=== PATIENT | male | born 1965 | race Caucasian/White ===

== ENCOUNTER 2021-12-03 07:50 | Emergency (ER) | payer MEDICARE, MEDICAID ==
[~2021-12-03] VITALS: Ht 185.4 cm; Wt 188.6 kg
[~2021-12-03 07:50] MED LIST: ALBU18HF2 INH
[2021-12-03 08:49] LABS: BASOPHILS # (AUTO) 0.1 X10'3 (0-0.2); EOSINOPHILS # (AUTO) 0.5 X10'3 (0-0.9); EOSINOPHILS % (AUTO) 5.4 % (0-6); HEMATOCRIT 41.9 % (42.0-52.0); HEMOGLOBIN 14.2 g/dl (14.0-17.9); LYMPHOCYTES # (AUTO) 1.9 X10'3 (1.1-4.8); LYMPHOCYTES % (AUTO) 21.4 % (21-51); MEAN CORPUSCULAR HEMOGLOBIN 31.9 PG (27.0-31.0); MEAN CORPUSCULAR HGB CONC 33.8 g/dL (33.0-36.5); MEAN CORPUSCULAR VOLUME 94.4 FL (78-98); MEAN PLATELET VOLUME 7.5 FL (7.4-10.4); MONOCYTES # (AUTO) 0.9 X10'3 (0-0.9); MONOCYTES % (AUTO) 9.6 % (2-12); NEUTROPHILS # (AUTO) 5.6 X10'3 (1.8-7.7); NEUTROPHILS % (AUTO) 62.6 % (42-75); PLATELET COUNT 363 X10'3 (140-440); RED BLOOD COUNT 4.44 X10'6 (4.70-6.10); WHITE BLOOD COUNT 8.9 X10'3 (4.5-11.0)
[2021-12-03 09:09] LABS: ALANINE AMINOTRANSFERASE 41 U/L (12-78); ALBUMIN 3.7 G/DL (3.4-5.0); ALBUMIN/GLOBULIN RATIO 1.1 (1.1-1.5); ALKALINE PHOSPHATASE 81 IU/L (46-116); ANION GAP 8 (8-16); ASPARTATE AMINO TRANSFERASE 22 U/L (10-37); BILIRUBIN,TOTAL 0.5 MG/DL (0.1-1.0); BLOOD UREA NITROGEN 13 MG/DL (7-18); BUN/CREATININE RATIO 12.7 (5.4-32.0); CALCIUM 8.7 MG/DL (8.5-10.1); CHLORIDE 103 MMOL/L (99-107); CREATININE 1.02 MG/DL (0.60-1.10); GLUCOSE 127 MG/DL (70-104); POTASSIUM 3.3 MMOL/L (3.5-5.1); SODIUM 143 MMOL/L (135-145); TOTAL CARBON DIOXIDE 31.8 MMOL/L (24-32); TOTAL PROTEIN 7.1 G/DL (6.4-8.2); eGFR 76 ML/MIN
[2021-12-03 09:19] LABS: C-REACTIVE PROTEIN 0.46 MG/DL (0.0-0.5); MAGNESIUM 1.1 MG/DL (1.5-2.4)
[2021-12-03 11:02] VITALS: BP 150/92
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
[2021-12-03] MEDS ORDERED: FURO-150 PO (12:05)
== END 2021-12-03 12:07 | disposition home or self-care (01) ==
LOC: ER 07:50
DX: R60.9 Edema, unspecified (principal); E66.01 Morbid (severe) obesity due to excess calories; G62.9 Polyneuropathy, unspecified; G89.29 Other chronic pain; M10.9 Gout, unspecified; Z79.899 Other long term (current) drug therapy; Z68.43 Body mass index [BMI] 50.0-59.9, adult
CPT/HCPCS: 36415; 71045; 76700; 80053; 83735; 83880; 84484; 85025; 86140; 93005; 99285

== ENCOUNTER → 2022-06-20 | Outpatient (CLI) | payer MEDICARE, MEDICAID ==
[~2022-06-20] VITALS: Ht 185.4 cm; Wt 197.3 kg
[~2022-06-20] MED LIST changes: +ALLO300T8 PO; +AMLO5TAB16 PO; +ATOR20TA66 PO; +CLOT30CR24 TOP; +FURO20TA4 PO; +HYDR-3972 PO; +HYDR25TA5 PO; +IRBE300T18 PO; +LACT1CAP26 PO; +OMEP20CA16 PO; +SPIR25TA5 PO; +TRIA15CR61 TOP; +aminophylline 250mg/10ml inj. IV PRN; +nitroGLYCERIN 0.4mg SUBLingual tab SL PRN; +normal saline 500ml IV soln 500 ML IV ONE; +regadenoson 0.4mg/5ml syringe IV ONE
[2022-06-23] VITALS (8 sets, daily range): BP systolic 124–142; BP diastolic 70–93
== END | disposition home or self-care (01) ==
LOC: RAD 08:12
PROVIDERS: ATTEND Internal Medicine Interventional Cardiology
DX: I50.9 Heart failure, unspecified (principal); R06.02 Shortness of breath; R07.9 Chest pain, unspecified
CPT/HCPCS: 78451; A9500

== ENCOUNTER 2023-11-29 02:38 | Emergency (ER) | payer MEDICARE, MEDICAID ==
[~2023-11-29] VITALS: Ht 182.9 cm; Wt 193.2 kg
[~2023-11-29 02:38] MED LIST changes: -IRBE300T18 PO; +IRBE300T26 PO; -aminophylline 250mg/10ml inj. IV PRN; -nitroGLYCERIN 0.4mg SUBLingual tab SL PRN; -normal saline 500ml IV soln 500 ML IV ONE; -regadenoson 0.4mg/5ml syringe IV ONE
[2023-11-29] MEDS: cyclobenzaprine 10mg tablet PO ONE (04:25)
[2023-11-29] MEDS: ketorolac trometh 30MG/ML vial 30 MG/ML VIAL IM ONE (04:26)
--- NOTE | 2023-11-29 05:31 | NUR ---
INFORMED PAIN REASSEMENT RATED 5/10
[2023-11-29 05:56] VITALS: TEMP 97.6
[2023-11-29 07:41] VITALS: BP 146/90; PULSE 87; RESP 18; O2SAT 95
== END 2023-11-29 07:43 | disposition home or self-care (01) ==
LOC: ER 02:38
DX: M53.3 Sacrococcygeal disorders, not elsewhere classified (principal); G89.11 Acute pain due to trauma; G62.9 Polyneuropathy, unspecified; I50.9 Heart failure, unspecified; E78.00 Pure hypercholesterolemia, unspecified; K21.9 Gastro-esophageal reflux disease without esophagitis; G89.29 Other chronic pain; M54.9 Dorsalgia, unspecified; Z79.899 Other long term (current) drug therapy; W18.39XA Other fall on same level, initial encounter; Y93.89 Activity, other specified; Y92.89 Other specified places as the place of occurrence of the external cause; Y99.8 Other external cause status
CPT/HCPCS: 74176; 96372; 99285; J1885

== ENCOUNTER 2024-12-31 10:56 | Emergency (ER) | payer OTHER, MEDICARE, MEDICAID ==
[~2024-12-31] VITALS: Ht 185.4 cm; Wt 38.0 kg
[2024-12-31 11:07] VITALS: TEMP 98.1
[2024-12-31] MEDS: ketorolac trometh 30MG/ML vial 30 MG/ML VIAL IM ONE (13:20)
[2024-12-31 13:24] VITALS: BP 102/73; PULSE 81; O2SAT 97
[2024-12-31 13:25] VITALS: RESP 16
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
== END 2024-12-31 15:47 | disposition home or self-care (01) ==
LOC: ER 10:56
DX: S13.4XXA Sprain of ligaments of cervical spine, initial encounter (principal); E78.00 Pure hypercholesterolemia, unspecified; K21.9 Gastro-esophageal reflux disease without esophagitis; G89.29 Other chronic pain; G62.9 Polyneuropathy, unspecified; I50.9 Heart failure, unspecified; Z79.899 Other long term (current) drug therapy; V49.9XXA Car occupant (driver) (passenger) injured in unspecified traffic accident, initial encounter; Y93.89 Activity, other specified; Y92.89 Other specified places as the place of occurrence of the external cause; Y99.8 Other external cause status
CPT/HCPCS: 72040; 96372; 99284; J1885